=== PATIENT | female | born 1990 | race Two or more races ===

== ENCOUNTER 2019-06-11 15:53 | Emergency (ER) | payer SELFPAY ==
[~2019-06-11] VITALS: Ht 154.9 cm; Wt 95.9 kg
--- NOTE | 2019-06-11 16:27 | PHYS DOC ---
Past Medical History Past Medical History: No Pertinent History Past Surgical History: No Surgical History Alcohol Use: Occasionally Drug Use: Marijuana Adult General Chief Complaint Chief Complaint: BLOODY STOOL HPI HPI Patient is a 29 year old female with no significant medical history who presents to the ED today complaining of nausea, vomiting, bloody stools, symptoms for 5 weeks. Patient is also complaining of bloody stools that began 3 days ago. Denies any hematemesis. Describes abdominal pain as sharp and rates it at 5/10, denies any exacerbating or relieving factors to her symptoms. Review of Systems Review of Systems Constitutional: Denies fever or chills [] Eyes: Denies change in visual acuity, redness, or eye pain [] HENT: Denies nasal congestion or sore throat [] Respiratory: Denies cough or shortness of breath [] Cardiovascular: No additional information not addressed in HPI [] GI: Reports abdominal pain, nausea, vomiting, diarrhea with bloody stools : Denies dysuria or hematuria [] Musculoskeletal: Denies back pain or joint pain [] Integument: Denies rash or skin lesions [] Neurologic: Denies headache, focal weakness or sensory changes [] All other systems were reviewed and found to be within normal limits, except as documented in this note. Current Medications Current Medications Current Medications Medications (Trade) Dose Ordered Sig/[facility] Start Time Stop Time Status Last Admin Dose Admin Famotidine (Pepcid Vial) 20 mg 1X ONCE 06/11/19 16:30 06/11/19 16:31 DC 06/11/19 16:53 20 MG Fentanyl Citrate (Fentanyl 2ml Vial) 50 mcg 1X ONCE 06/11/19 16:30 06/11/19 16:31 DC Info (CONTRAST GIVEN -- Rx MONITORING) 1 each PRN DAILY PRN 06/11/19 17:15 06/13/19 17:14 Iohexol (Omnipaque 300 Mg/ml) 75 ml 1X ONCE 06/11/19 17:15 06/11/19 17:16 DC 06/11/19 17:18 75 ML Ondansetron HCl (Zofran) 4 mg 1X ONCE 06/11/19 16:30 06/11/19 16:31 DC 06/11/19 16:59 4 MG Sodium Chloride 1,000 ml @ 1,000 mls/hr 1X ONCE 06/11/19 16:30 06/11/19 17:29 DC 06/11/19 16:48 1,000 MLS/HR Allergies Allergies Allergies Coded Allergies Type Severity Reaction Last Updated Verified No Known Drug Allergies 06/11/19 No Physical Exam Physical Exam Constitutional: Well developed, well nourished, no acute distress, non-toxic appearance. [] HENT: Normocephalic, atraumatic, bilateral external ears normal, oropharynx moist, no oral exudates, nose normal. [] Eyes: PERRLA, EOMI, conjunctiva normal, no discharge. [] Neck: Normal range of motion, no tenderness, supple, no stridor. [] Cardiovascular:Heart rate regular rhythm, no murmur [] Lungs & Thorax: Bilateral breath sounds clear to auscultation [] Abdomen: Bowel sounds normal, soft, mild epigastric tenderness, no right upper quadrant or right lower quadrant tenderness, negative psoas sign, negative obturator sign, negative Rovsing sign no guarding no masses, no pulsatile masses. [] Skin: Warm, dry, no erythema, no rash. [] Back: No tenderness, no CVA tenderness. [] Extremities: No tenderness, no cyanosis, no clubbing, ROM intact, no edema. [] Neurologic: Alert and oriented X 3, normal motor function, normal sensory function, no focal deficits noted. [] Psychologic: Affect normal, judgement normal, mood normal. [] Current Patient Data Vital Signs Vital Signs Date Time Temp Pulse Resp B/P (MAP) Pulse Ox O2 Delivery O2 Flow Rate FiO2 06/11/19 17:26 64 16 140/66 (90) 98 Room Air 06/11/19 16:16 99.3 99.3 Lab Values Laboratory Tests Test 06/11/19 16:23 06/11/19 16:42 06/11/19 16:45 06/11/19 17:24 Urine Collection Type Void Urine Color Yellow Urine Clarity Clear Urine pH 6.0 Urine Specific [place] 1.025 Urine Protein Negative mg/dL (NEG-TRACE) Urine Glucose (UA) Negative mg/dL (NEG) Urine Ketones (Stick) Negative mg/dL (NEG) Urine Blood Negative (NEG) Urine Nitrite Negative (NEG) Urine Bilirubin Negative (NEG) Urine Urobilinogen Dipstick 0.2 mg/dL (0.2 mg/dL) Urine Leukocyte Esterase Negative (NEG) Urine RBC 0 /HPF (0-2) Urine WBC Occ /HPF (0-4) Urine Squamous Epithelial Cells Many /LPF Urine Bacteria Many /HPF (0-FEW) Urine Mucus Marked /LPF Urine Opiates Screen Neg (NEG) Urine Methadone Screen Neg (NEG) Urine Barbiturates Neg (NEG) Urine Phencyclidine Screen Neg (NEG) Urine Amphetamine/Methamphetamine Neg (NEG) Urine Benzodiazepines Screen Neg (NEG) Urine Cocaine Screen Neg (NEG) Urine Cannabinoids Screen Pos (NEG) Urine Ethyl Alcohol Neg (NEG) POC Urine HCG, Qualitative Hcg negative (Negative) White Blood Count 7.6 x10^3/uL (4.0-11.0) Red Blood Count 4.90 x10^6/uL (3.50-5.40) Hemoglobin 14.0 g/dL (12.0-15.5) Hematocrit 41.4 % (36.0-47.0) Mean Corpuscular Volume 85 fL (79-100) Mean Corpuscular Hemoglobin 29 pg (25-35) Mean Corpuscular Hemoglobin Concent 34 g/dL (31-37) Red Cell Distribution Width 13.1 % (11.5-14.5) Platelet Count 309 x10^3/uL (140-400) Neutrophils (%) (Auto) 56 % (31-73) Lymphocytes (%) (Auto) 31 % (24-48) Monocytes (%) (Auto) 10 % (0-9) H Eosinophils (%) (Auto) 3 % (0-3) Basophils (%) (Auto) 0 % (0-3) Neutrophils # (Auto) 4.3 x10^3/uL (1.8-7.7) Lymphocytes # (Auto) 2.4 x10^3/uL (1.0-4.8) Monocytes # (Auto) 0.7 x10^3/uL (0.0-1.1) Eosinophils # (Auto) 0.2 x10^3/uL (0.0-0.7) Basophils # (Auto) 0.0 x10^3/uL (0.0-0.2) Sodium Level 144 mmol/L (136-145) Potassium Level 3.9 mmol/L (3.5-5.1) Chloride Level 107 mmol/L (98-107) Carbon Dioxide Level 30 mmol/L (21-32) Anion Gap 7 (6-14) Blood Urea Nitrogen 14 mg/dL (7-20) Creatinine 0.8 mg/dL (0.6-1.0) Estimated GFR (Cockcroft-Gault) 85.4 BUN/Creatinine Ratio 18 (6-20) Glucose Level 98 mg/dL (70-99) Calcium Level 9.0 mg/dL (8.5-10.1) Total Bilirubin 0.5 mg/dL (0.2-1.0) Aspartate Amino Transferase (AST) 32 U/L (15-37) Alanine Aminotransferase (ALT) 46 U/L (14-59) Alkaline Phosphatase 82 U/L (46-116) Total Protein 7.8 g/dL (6.4-8.2) Albumin 3.8 g/dL (3.4-5.0) Albumin/Globulin Ratio 1.0 (1.0-1.7) Lipase 69 U/L (73-393) L Ethyl Alcohol Level < 10 mg/dL (0-10) Stool Occult Blood Negative (NEG) Laboratory Tests 06/11/19 16:45 Laboratory Tests 06/11/19 16:45 EKG EKG [] Radiology/Procedures Radiology/Procedures []PROCEDURE: CT ABD PELV W/ IV CONTRST ONLY PQRS Compliance Statement: One or more of the following individualized dose reduction techniques were utilized for this examination: 1. Automated exposure control 2. Adjustment of the mA and/or kV according to patient size 3. Use of iterative reconstruction technique CT ABD PELV W/ IV CONTRST ONLY Clinical Indication: Nausea, vomiting, abdominal pain, blood in stool x5 weeks. Comparison: None. Technique: Helical CT imaging of the abdomen and pelvis is performed after 75 cc of Omnipaque 300 IV contrast. Oral contrast not given. Findings: Lung bases are clear. Cardiac size normal. The liver, gallbladder, spleen, pancreas, adrenal glands, abdominal aorta, and kidneys are normal. Stomach is unremarkable. There is no dilated small bowel. There is no convincing colon wall thickening. The appendix is normal. There are 2 enlarged pericecal lymph nodes, largest measures 14 mm short axis. There are a few other subcentimeter pericecal lymph nodes. There is large right pelvic mass. The mass is solid and enhancing and measures approximately 10 cm AP by 11.2 cm transverse by 12.6 cm craniocaudal. Origin of the mass is not definitive but the appearance is identical to the mass extending from the uterine fundus. There is a large mass contiguous with the uterine fundus that measures 8 cm AP by 10.1 cm transverse by approximately 7 cm craniocaudal. There is a partially exophytic fibroid at the anterior uterine fundus measuring 2.6 cm. Left ovary appears to be seen on image 64. Right ovary probably present on image 54. Urinary bladder is not well distended, otherwise normal. No pelvic free fluid. No acute bone abnormality. IMPRESSION: 1. There are large bilateral pelvic masses protruding superiorly to near the level of the umbilicus. The mass on the left is contiguous with the uterine fundus and is likely a fibroid. The mass on the right may be an exophytic or pedunculated fibroid. Given the size of the masses, leiomyosarcoma cannot be excluded. 2. There are 2 mildly enlarged pericecal lymph nodes, indeterminate. Electronically signed by: Kasi Mcguire MD (06/11/2019 6:29 PM) [id number] DICTATED and SIGNED BY: KASI MCGUIRE MD DATE: 06/11/19 1829 Course & Med Decision Making Course & Med Decision Making Pertinent Labs and Imaging studies reviewed. (See chart for details) This is a 29-year-old female patient presenting to the ED today with complaints of epigastric abdominal pain, nausea, vomiting, diarrhea, symptoms began 5 weeks ago. Also complaining of bloody stools for 3 days. Negative urine hCG, CBC, CMP, UA-negative for any acute findings, negative Hemoccult. CT of the abdomen and pelvic was noted for large bilateral pelvic masses concerning for fibrous though he also, could not be excluded. Also noted for 2 mildly enlarged pericecal lymph nodes, indeterminate. Above results were discussed with patient. She was advised to follow up with an STRIP FEEDER for outpatient workup including pelvic ultrasound. Dragon Disclaimer Dragon Disclaimer This electronic medical record was generated, in whole or in part, using a voice recognition dictation system. Departure Departure Impression: Primary Impression: Bloody stools Additional Impression: Fibroids Disposition: HOME, SELF-CARE Condition: STABLE Referrals: NO PCP (PCP) GERALDINE JIMÉNEZ Jr, MD follow up in one week Patient Instructions: Fibroids, [id number] Additional Instructions: You were evaluated in the emergency room for abdominal pain with nausea, vomiting, diarrhea. Your labs are negative for any acute findings. Your ct- scan of the abdomen and pelvic was noted for large fibroids in your uterus. They could not rule out cancerous origin of this fibroids. We provided you an STRIP FEEDER, contact them tomorrow and follow-up. If you have your own STRIP FEEDER consider following up with them as soon as you can. Scripts No Active Prescriptions or Reported Meds Problem Qualifiers MALIK STEELE APRN Jun 11, 2019 16:27
[2019-06-11] MEDS ORDERED: FAMOTIDINE 20 MG/2 ML VIAL IVP ONE (16:30)
[2019-06-11] MEDS ORDERED: fentaNYL PF VIAL 100 MCG/2 ML VIAL IVP ONE (16:30)
[2019-06-11] MEDS ORDERED: IV NORMAL SALINE 1000ML BAG 1,000 ML IV ONE (16:30)
[2019-06-11] MEDS ORDERED: ONDANSETRON PF 4 MG/2 ML VIAL. IV ONE (16:30)
[2019-06-11 16:52] LABS: BILIRUBIN,URINE NEGATIVE (NEG); CLARITY,URINE CLEAR; COLOR,URINE YELLOW; NITRITE,URINE NEGATIVE (NEG); PROTEIN,URINE NEGATIVE (NEG-TRACE); UROBILINOGEN,URINE 0.2 mg/dL (0.2 mg/dL)
[2019-06-11 16:56] LABS: BASO % 0 % (0-3); EOS # 0.2 x10^3/uL (0.0-0.7); EOS % 3 % (0-3); HEMATOCRIT 41.4 % (36.0-47.0); LYMPH # 2.4 x10^3/uL (1.0-4.8); LYMPH % 31 % (24-48); MEAN CORPUSCULAR HEMOGLOBIN 29 pg (25-35); MEAN CORPUSCULAR HGB CONC 34 g/dL (31-37); MEAN CORPUSCULAR VOLUME 85 fL (79-100); MONO # 0.7 x10^3/uL (0.0-1.1); MONO % 10 % (0-9); NEUT # 4.3 x10^3/uL (1.8-7.7); NEUT % 56 % (31-73); PLATELET COUNT 309 x10^3/uL (140-400); RED CELL DISTRIBUTION WIDTH 13.1 % (11.5-14.5); WHITE BLOOD COUNT 7.6 x10^3/uL (4.0-11.0)
[2019-06-11 16:57] LABS: BARBITURATES NEG (NEG); BENZODIAZEPINES NEG (NEG); CANNABINOIDS POS (NEG); COCAINE NEG (NEG); METHADONE NEG (NEG); OPIATES NEG (NEG); PHENCYCLIDINE NEG (NEG)
[2019-06-11 16:59] LABS: AMPHETAMINE/METHAMPHETAMINE NEG (NEG)
[2019-06-11 17:07] LABS: CREATININE 0.8 mg/dL (0.6-1.0); GFR 85.4; POTASSIUM 3.9 mmol/L (3.5-5.1)
[2019-06-11 17:13] LABS: ALBUMIN 3.8 g/dL (3.4-5.0); TOTAL BILIRUBIN 0.5 mg/dL (0.2-1.0); TOTAL PROTEIN 7.8 g/dL (6.4-8.2)
[2019-06-11] MEDS ORDERED: IOHEXOL 300 MG/ML 100ML VIAL. IV ONE (17:15)
[2019-06-11] MEDS ORDERED: CONTRAST GIVEN. MC PRN (17:15)
[2019-06-11 17:16] LABS: BACTERIA,URINE MANY /HPF (0-FEW); RBC,URINE 0 /HPF (0-2); WBC,URINE OCC /HPF (0-4)
[2019-06-11 17:17] LABS: SQUAMOUS EPITHELIAL CELL,UR MANY /LPF
[2019-06-11 17:26] VITALS: BP 140/66
[2019-06-11 17:48] LABS: FECAL OB PT NEGATIVE (NEG)
--- NOTE | 2019-06-11 18:32 | RAD ---
PQRS Compliance Statement: One or more of the following individualized dose reduction techniques were utilized for this examination: 1. Automated exposure control 2. Adjustment of the mA and/or kV according to patient size 3. Use of iterative reconstruction technique CT ABD PELV W/ IV CONTRST ONLY Clinical Indication: Nausea, vomiting, abdominal pain, blood in stool x5 weeks. Comparison: None. Technique: Helical CT imaging of the abdomen and pelvis is performed after 75 cc of Omnipaque 300 IV contrast. Oral contrast not given. Findings: Lung bases are clear. Cardiac size normal. The liver, gallbladder, spleen, pancreas, adrenal glands, abdominal aorta, and kidneys are normal. Stomach is unremarkable. There is no dilated small bowel. There is no convincing colon wall thickening. The appendix is normal. There are 2 enlarged pericecal lymph nodes, largest measures 14 mm short axis. There are a few other subcentimeter pericecal lymph nodes. There is large right pelvic mass. The mass is solid and enhancing and measures approximately 10 cm AP by 11.2 cm transverse by 12.6 cm craniocaudal. Origin of the mass is not definitive but the appearance is identical to the mass extending from the uterine fundus. There is a large mass contiguous with the uterine fundus that measures 8 cm AP by 10.1 cm transverse by approximately 7 cm craniocaudal. There is a partially exophytic fibroid at the anterior uterine fundus measuring 2.6 cm. Left ovary appears to be seen on image 64. Right ovary probably present on image 54. Urinary bladder is not well distended, otherwise normal. No pelvic free fluid. No acute bone abnormality. IMPRESSION: 1. There are large bilateral pelvic masses protruding superiorly to near the level of the umbilicus. The mass on the left is contiguous with the uterine fundus and is likely a fibroid. The mass on the right may be an exophytic or pedunculated fibroid. Given the size of the masses, leiomyosarcoma cannot be excluded. 2. There are 2 mildly enlarged pericecal lymph nodes, indeterminate. Electronically signed by: Kasi Tipton MD (06/11/2019 6:29 PM) [id number]
== END 2019-06-11 18:50 | disposition home or self-care (01) ==
LOC: ER 15:53
DX: K92.1 Melena (principal); D25.9 Leiomyoma of uterus, unspecified; R11.2 Nausea with vomiting, unspecified
CPT/HCPCS: 36415; 74177; 80053; 80307; 81001; 81025; 82274; 83690; 85025; 96361; 96374; 96375; 99285; G0480; J2405; J3490; J7030; Q9967

== ENCOUNTER 2019-08-13 19:00 | Emergency (ER) | payer SELFPAY ==
[~2019-08-13] VITALS: Ht 154.9 cm; Wt 98.4 kg
[2019-08-13 19:30] LABS: BILIRUBIN,URINE NEGATIVE (NEG); CLARITY,URINE CLEAR; COLOR,URINE YELLOW; NITRITE,URINE NEGATIVE (NEG); PH,URINE 6.5; PROTEIN,URINE NEGATIVE (NEG-TRACE); UROBILINOGEN,URINE 0.2 mg/dL (0.2 mg/dL)
[2019-08-13 19:49] LABS: BACTERIA,URINE FEW /HPF (0-FEW); RBC,URINE 0 /HPF (0-2); SQUAMOUS EPITHELIAL CELL,UR MOD /LPF
[2019-08-13 19:52] LABS: U PREG PATIENT NEGATIVE (NEG)
[2019-08-13] MEDS ORDERED: ONDANSETRON PF 4 MG/2 ML VIAL. IV ONE (21:00)
[2019-08-13] MEDS ORDERED: IV NORMAL SALINE 1000ML BAG 1,000 ML IV ONE (21:00)
[2019-08-13 21:05] LABS: BASO % 0 % (0-3); EOS # 0.1 x10^3/uL (0.0-0.7); EOS % 1 % (0-3); HEMATOCRIT 42.3 % (36.0-47.0); HEMOGLOBIN 14.1 g/dL (12.0-15.5); LYMPH % 44 % (24-48); MEAN CORPUSCULAR HEMOGLOBIN 28 pg (25-35); MEAN CORPUSCULAR HGB CONC 33 g/dL (31-37); MEAN CORPUSCULAR VOLUME 84 fL (79-100); MONO # 0.6 x10^3/uL (0.0-1.1); MONO % 8 % (0-9); NEUT # 3.3 x10^3/uL (1.8-7.7); NEUT % 47 % (31-73); PLATELET COUNT 208 x10^3/uL (140-400); RED BLOOD COUNT 5.01 x10^6/uL (3.50-5.40); WHITE BLOOD COUNT 6.9 x10^3/uL (4.0-11.0)
[2019-08-13 21:12] LABS: CALCIUM 8.5 mg/dL (8.5-10.1); CREATININE 1.1 mg/dL (0.6-1.0); GFR 59.1; POTASSIUM 3.6 mmol/L (3.5-5.1)
[2019-08-13 21:18] LABS: ALBUMIN 3.6 g/dL (3.4-5.0); ALBUMIN/GLOBULIN RATIO 0.9 (1.0-1.7); TOTAL BILIRUBIN 0.4 mg/dL (0.2-1.0); TOTAL PROTEIN 7.6 g/dL (6.4-8.2)
[2019-08-13 21:19] LABS: INFLUENZA A PATIENT NEGATIVE (NEGATIVE); INFLUENZA B PATIENT NEGATIVE (NEGATIVE)
[2019-08-13] MEDS ORDERED: IOHEXOL 300 MG/ML 100ML VIAL. IV ONE (21:45)
[2019-08-13] MEDS ORDERED: CONTRAST GIVEN. MC PRN (21:45)
--- NOTE | 2019-08-13 22:35 | RAD ---
Examination: CT ABD PELV W/ IV CONTRST ONLY History: Vomiting for the past 4 days Comparison/Correlation: 06/11/2019 CT abdomen and pelvis with contrast Findings: Axial images of the abdomen and pelvis were obtained following IV contrast. Sagittal and coronal reformatted images were provided. Visualized lung bases are clear. Liver, spleen, pancreas, adrenal glands, and kidneys are normal. Gallbladder fossa is unremarkable. No bowel obstruction or extraluminal gas. Appendix is normal. No ascites or pelvic free fluid. Multiple large exophytic fibroid masses again seen to involve the uterus filling the pelvic cavity and extending to the mid abdominal level mild heterogeneous appearance of the fibroid masses. No significant change compared to the prior exam. Largest of the fibroids is seen on the right again measuring up to 11.2 cm in diameter. Urinary bladder is unremarkable. Bony structures are unremarkable. Impression: No significant change in large exophytic uterine fibroids. No acute, suspicious new process. PQRS Compliance Statement: One or more of the following individualized dose reduction techniques were utilized for this examination: 1. Automated exposure control 2. Adjustment of the mA and/or kV according to patient size 3. Use of iterative reconstruction technique Electronically signed by: Anjel Hunt MD (08/13/2019 10:32 PM) [facility]
[2019-08-13 22:39] VITALS: BP 147/83
[2019-08-13] MEDS ORDERED: ONDA4TAB12 PO (23:05)
--- NOTE | 2019-08-13 23:05 | PHYS DOC ---
Past Medical History Past Medical History: Other Additional Past Medical Histor: UTERINE FIBROIDS (MARIA GUADALUPE LANGSTON APRN) Past Surgical History: No Surgical History (MARIA GUADALUPE LANGSTON APRN) Alcohol Use: Occasionally Drug Use: Marijuana (MARIA GUADALUPE LANGSTON APRN) Attending Signature I have participated in the care of this patient and I have reviewed and agree with all pertinent clinical information above including history, exam, and recommendations. (BEAN CRABTREE MD) Adult General Chief Complaint Chief Complaint: NAUSEA/VOMITING/DIARRHA HPI HPI Patient is a 29 year old female who presents with vomiting after eating and drinking for the last 4 days. She states it does not matter what she is 8 or drink. She denies any pain or diarrhea. She states this happened back in April and the only thing they found was fibroids. She states she never followed up with a GI doctor. She states she just been taking Pepto-Bismol and Angelic-Esbon. (MARIA GUADALUPE LANGSTON APRN) Review of Systems Review of Systems GI: Denies abdominal pain. + nausea, +vomiting, denies bloody stools or diarrhea [] All other systems were reviewed and found to be within normal limits, except as documented in this note. (MARIA GUADALUPE LANGSTON APRN) Current Medications Current Medications Current Medications Medications (Trade) Dose Ordered Sig/[place] Start Time Stop Time Status Last Admin Dose Admin Info (CONTRAST GIVEN -- Rx MONITORING) 1 each PRN DAILY PRN 08/13/19 21:45 08/14/19 00:14 DC Iohexol (Omnipaque 300 Mg/ml) 75 ml 1X ONCE 08/13/19 21:45 08/13/19 21:46 DC 08/13/19 21:53 75 ML Ondansetron HCl (Zofran) 4 mg 1X ONCE 08/13/19 21:00 08/13/19 21:01 DC 08/13/19 21:07 4 MG Sodium Chloride 1,000 ml @ 1,000 mls/hr 1X ONCE 08/13/19 21:00 08/13/19 21:59 DC 08/13/19 21:07 1,000 MLS/HR (BEAN CRABTREE MD) Allergies Allergies Allergies Coded Allergies Type Severity Reaction Last Updated Verified No Known Drug Allergies 06/11/19 No (BEAN CRABTREE MD) Physical Exam Physical Exam Constitutional: Well developed, well nourished, no acute distress, non-toxic appearance. [] HENT: Normocephalic, atraumatic, bilateral external ears normal, oropharynx moist, no oral exudates, nose normal. [] Eyes: PERRLA, EOMI, conjunctiva normal, no discharge. [] Neck: Normal range of motion, no tenderness, supple, no stridor. [] Cardiovascular:Heart rate regular rhythm, no murmur [] Lungs & Thorax: Bilateral breath sounds clear to auscultation [] Abdomen: Bowel sounds normal, soft, no tenderness, no masses, no pulsatile masses. [] Skin: Warm, dry, no erythema, no rash. [] Back: No tenderness, no CVA tenderness. [] Extremities: No tenderness, no cyanosis, no clubbing, ROM intact, no edema. [] Neurologic: Alert and oriented X 3, normal motor function, normal sensory function, no focal deficits noted. [] Psychologic: Affect normal, judgement normal, mood normal. Normal Physical Exam [] (MARIA GUADALUPE LANGSTON APRN) Current Patient Data Vital Signs Vital Signs Date Time Temp Pulse Resp B/P (MAP) Pulse Ox O2 Delivery O2 Flow Rate FiO2 08/13/19 22:39 58 26 147/83 (104) 99 Room Air 08/13/19 19:33 97.6 97.6 (BEAN CRABTREE MD) Lab Values Laboratory Tests Test 08/13/19 19:09 08/13/19 19:30 08/13/19 20:55 Urine Collection Type Unknown Urine Color Yellow Urine Clarity Clear Urine pH 6.5 Urine Specific [place] 1.010 Urine Protein Negative mg/dL (NEG-TRACE) Urine Glucose (UA) Negative mg/dL (NEG) Urine Ketones (Stick) Negative mg/dL (NEG) Urine Blood Negative (NEG) Urine Nitrite Negative (NEG) Urine Bilirubin Negative (NEG) Urine Urobilinogen Dipstick 0.2 mg/dL (0.2 mg/dL) Urine Leukocyte Esterase Negative (NEG) Urine RBC 0 /HPF (0-2) Urine WBC 1-4 /HPF (0-4) Urine Squamous Epithelial Cells Mod /LPF Urine Bacteria Few /HPF (0-FEW) Urine Test Negative (NEG) White Blood Count 6.9 x10^3/uL (4.0-11.0) Red Blood Count 5.01 x10^6/uL (3.50-5.40) Hemoglobin 14.1 g/dL (12.0-15.5) Hematocrit 42.3 % (36.0-47.0) Mean Corpuscular Volume 84 fL (79-100) Mean Corpuscular Hemoglobin 28 pg (25-35) Mean Corpuscular Hemoglobin Concent 33 g/dL (31-37) Red Cell Distribution Width 13.0 % (11.5-14.5) Platelet Count 208 x10^3/uL (140-400) Neutrophils (%) (Auto) 47 % (31-73) Lymphocytes (%) (Auto) 44 % (24-48) Monocytes (%) (Auto) 8 % (0-9) Eosinophils (%) (Auto) 1 % (0-3) Basophils (%) (Auto) 0 % (0-3) Neutrophils # (Auto) 3.3 x10^3/uL (1.8-7.7) Lymphocytes # (Auto) 3.0 x10^3/uL (1.0-4.8) Monocytes # (Auto) 0.6 x10^3/uL (0.0-1.1) Eosinophils # (Auto) 0.1 x10^3/uL (0.0-0.7) Basophils # (Auto) 0.0 x10^3/uL (0.0-0.2) Sodium Level 145 mmol/L (136-145) Potassium Level 3.6 mmol/L (3.5-5.1) Chloride Level 106 mmol/L (98-107) Carbon Dioxide Level 29 mmol/L (21-32) Anion Gap 10 (6-14) Blood Urea Nitrogen 10 mg/dL (7-20) Creatinine 1.1 mg/dL (0.6-1.0) H Estimated GFR (Cockcroft-Gault) 59.1 BUN/Creatinine Ratio 9 (6-20) Glucose Level 96 mg/dL (70-99) Calcium Level 8.5 mg/dL (8.5-10.1) Total Bilirubin 0.4 mg/dL (0.2-1.0) Aspartate Amino Transferase (AST) 40 U/L (15-37) H Alanine Aminotransferase (ALT) 71 U/L (14-59) H Alkaline Phosphatase 75 U/L (46-116) Total Protein 7.6 g/dL (6.4-8.2) Albumin 3.6 g/dL (3.4-5.0) Albumin/Globulin Ratio 0.9 (1.0-1.7) L Lipase 66 U/L (73-393) L Influenza Type A Antigen Negative (NEGATIVE) Influenza Type B Antigen Negative (NEGATIVE) Laboratory Tests 08/13/19 19:30 Laboratory Tests 08/13/19 19:30 (BEAN CRABTREE MD) EKG EKG [] (MARIA GUADALUPE LANGSTON APRN) Radiology/Procedures Radiology/Procedures [] (MARIA GUADALUPE LANGSTON APRN) Impressions: [facility] [address] [place] [address] IMAGING REPORT Signed PATIENT: JASBIR CAZARES AACCOUNT: [id number] : 1990 LOCATION: ER AGE: 29 SEX: F EXAM STATUS: REG ER ORD. PHYSICIAN: MARIA GUADALUPE LANGSTON APRN REASON: vomiting X4 DAYS, OMNI 300, 60 ML IV PROCEDURE: CT ABD PELV W/ IV CONTRST ONLY Examination: CT ABD PELV W/ IV CONTRST ONLY History: Vomiting for the past 4 days Comparison/Correlation: 06/11/2019 CT abdomen and pelvis with contrast Findings: Axial images of the abdomen and pelvis were obtained following IV contrast. Sagittal and coronal reformatted images were provided. Visualized lung bases are clear. Liver, spleen, pancreas, adrenal glands, and kidneys are normal. Gallbladder fossa is unremarkable. No bowel obstruction or extraluminal gas. Appendix is normal. No ascites or pelvic free fluid. Multiple large exophytic fibroid masses again seen to involve the uterus filling the pelvic cavity and extending to the mid abdominal level mild heterogeneous appearance of the fibroid masses. No significant change compared to the prior exam. Largest of the fibroids is seen on the right again measuring up to 11.2 cm in diameter. Urinary bladder is unremarkable. Bony structures are unremarkable. Impression: No significant change in large exophytic uterine fibroids. No acute, suspicious new process. PQRS Compliance Statement: One or more of the following individualized dose reduction techniques were utilized for this examination: 1. Automated exposure control 2. Adjustment of the mA and/or kV according to patient size 3. Use of iterative reconstruction technique Electronically signed by: Anjel Asher MD (08/13/2019 10:32 PM) [facility] DICTATED and SIGNED BY: ANJEL ASHER MD DATE: 08/13/192231 (MARIA GUADALUPE LANGSTON APRN) Course & Med Decision Making Course & Med Decision Making Alert and oriented. Skin pink warm and dry. Vital signs within normal limits. Abdomen is soft and nontender. No extremity edema. Lungs are clear to auscultation all lobes. Afebrile. Speaks in full clear sentences. Ambulatory with steady gait. Patient is given fluids and Zofran in the emergency room. CT abdomen pelvis shows Impression: No significant change in large exophytic uterine fibroids. No acute, suspicious new process. Blood work is unremarkable. Patient is stable and in no distress. Patient's vital signs remained stable. She is by mouth challenge and kept water down. I will refer her to TREATMENT SPECIALIST and a gastrointestinal doctor. (MARIA GUADALUPE LANGSTON APRN) Dragon Disclaimer Dragon Disclaimer This electronic medical record was generated, in whole or in part, using a voice recognition dictation system. (MARIA GUADALUPE LANGSTON APRN) Departure Departure Impression: Primary Impression: Fibroids Additional Impression: Nausea & vomiting Disposition: 01 HOME, SELF-CARE Condition: STABLE Referrals: NO PCP (PCP) GEARLDINE JIMÉNEZ Jr, MD, SCOTT S MD Patient Instructions: Gastritis, Adult, Uterine Fibroid, [id number] Additional Instructions: Follow-up with GI doctor and a service supervisor. Drink plenty of fluids. Scripts Ondansetron (ONDANSETRON ODT) 4 Mg Tab.rapdis 1 TAB PO PRN Q6-8HRS, #16 TAB Prov: MARIA GUADALUPE LANGSTON APRN 08/13/19 Problem Qualifiers Additional Impression: Nausea & vomiting Vomiting type: unspecified Vomiting Intractability: non-intractable Qualified Codes: R11.2 - Nausea with vomiting, unspecified MARIA GUADALUPE LANGSTON APRN Aug 13, 2019 23:05 BEAN CRABTREE MD Aug 14, 2019 02:56
== END 2019-08-13 23:20 | disposition home or self-care (01) ==
LOC: ER 19:00
DX: D25.9 Leiomyoma of uterus, unspecified (principal); R11.2 Nausea with vomiting, unspecified
CPT/HCPCS: 36415; 74177; 80053; 81001; 81025; 83690; 85025; 87804; 96361; 96374; 99285; J2405; J7030; Q9967

== ENCOUNTER 2019-12-02 14:42 | Emergency (ER) | payer SELFPAY ==
[~2019-12-02] VITALS: Ht 154.9 cm; Wt 86.8 kg
[~2019-12-02 14:42] MED LIST: ONDA4TAB12 PO
[2019-12-02 15:06] LABS: BILIRUBIN,URINE NEGATIVE (NEG); CLARITY,URINE CLOUDY; COLOR,URINE YELLOW; NITRITE,URINE NEGATIVE (NEG); PROTEIN,URINE NEGATIVE (NEG-TRACE); UROBILINOGEN,URINE 0.2 mg/dL (0.2 mg/dL)
[2019-12-02 15:15] LABS: BACTERIA,URINE FEW /HPF (0-FEW); RBC,URINE 0 /HPF (0-2)
[2019-12-02 15:16] LABS: SQUAMOUS EPITHELIAL CELL,UR MOD /LPF
--- NOTE | 2019-12-02 16:07 | RAD ---
OB ultrasound less than 14 weeks HISTORY: Abdominal pain Sonographic examination of the was performed by transabdominal technique and multiple static images were obtained. There is a single live intrauterine . The heartbeat is confirmed at 180 beats for minute. There is a large exophytic fibroid in the right adnexa measuring The crown-rump length of 2.96 cm corresponds the 9 week 6 day gestational age. Visualization of structures is limited at this early gestational age. 13 x 9.3 x 10.4 cm. The LMP of 10/02/2019 corresponds with an 8 week 5 day gestational age and estimated date confinement of July 08, 2020. The estimated size by ultrasound corresponds with a date of confinement of July 01 2020. IMPRESSION: 1. Single live intrauterine measures 9 weeks 6 days gestational age. This is within one standard deviation of that by LMP. 2. Fibroid uterus. 3. A short-term follow-up ultrasound could be performed if clinically indicated otherwise a structural survey would be performed at 18-21 weeks gestational age. End impression Electronically signed by: Shakir Hylton III, MD (12/02/2019 4:05 PM) [id number]
--- NOTE | 2019-12-02 16:21 | PHYS DOC ---
Past Medical History Past Medical History: Other Additional Past Medical Histor: UTERINE FIBROIDS Past Surgical History: No Surgical History Smoking Status: Never Smoker Alcohol Use: Occasionally Drug Use: Marijuana General Adult EDM: Chief Complaint: ABDOMINAL PAIN IN HPI: HPI: Patient is a 29 year old G1, P0 female who presents with abdominal cramping that started this morning. She states it got worse when she got up and moved around. She has not had any abdominal pain during this until now. She has not seen WAD LUBRICATOR at this point in her . They have told her they will see her at 12 weeks gestation. She believes she is about 8 weeks gestation at this time. She denies any vaginal bleeding, dysuria, hematuria, nausea, vomiting, fever, shortness of breath, cough. She is not had any trauma. Review of Systems: Review of Systems: General: Denies fever, chills, sweats, fatigue Eyes: Denies drainage, blurred vision HENT: Denies rhinorrhea, sore throat Respiratory: Denies shortness of breath breath, wheezing Cardiac: Denies edema, palpitations, chest pain GI: Denies N/V reports abdominal pain MSK: Denies back pain, neck pain Skin: Denies rash, jaundice Neuro: Denies headache, dizziness Psychiatric: Denies SI/HI Heart Score: Risk Factors: Risk Factors: DM, Current or recent (<one month) smoker, HTN, HLP, family history of CAD, obesity. Risk Scores: Score 0 - 3: 2.5% MACE over next 6 weeks - Discharge Home Score 4 - 6: 20.3% MACE over next 6 weeks - Admit for Clinical Observation Score 7 - 10: 72.7% MACE over next 6 weeks - Early Invasive Strategies Allergies: Allergies: Allergies Coded Allergies Type Severity Reaction Last Updated Verified No Known Drug Allergies 06/11/19 No Physical Exam: PE: Constitutional: Well developed, well nourished, Cooperative, NAD, non-toxic appearing HEENT: Normocephalic, atraumatic, oropharynx moist, EOMI, PERRL, no drainage from eyes, normal conjunctiva Neck: Supple, normal range of motion, no stridor Cardiovascular: RRR, 2+ radial pulses bilaterally, no edema Respiratory: CTA bilaterally, no respiratory distress, no wheezing/crackles Abdomen: Soft, nontender, nondistended, no masses Skin: Warm, dry, intact Extremities: No obvious deformities Neurologic: Alert and Oriented x3, motor and sensory function grossly normal, no focal deficits Psychologic: Normal affect, normal judgment, normal mood. No SI/HI Current Patient Data: Labs: Laboratory Tests Test 12/02/19 14:52 12/02/19 14:59 12/02/19 15:02 Urine Collection Type Unknown Urine Color Yellow Urine Clarity Cloudy Urine pH 6.0 (<5.0-8.0) Urine Specific [place] 1.025 (1.000-1.030) Urine Protein Negative mg/dL (NEG-TRACE) Urine Glucose (UA) Negative mg/dL (NEG) Urine Ketones (Stick) Negative mg/dL (NEG) Urine Blood Negative (NEG) Urine Nitrite Negative (NEG) Urine Bilirubin Negative (NEG) Urine Urobilinogen Dipstick 0.2 mg/dL (0.2 mg/dL) Urine Leukocyte Esterase Small (NEG) Urine RBC 0 /HPF (0-2) Urine WBC 1-4 /HPF (0-4) Urine Squamous Epithelial Cells Mod /LPF Urine Bacteria Few /HPF (0-FEW) Urine Mucus Mod /LPF POC Urine HCG, Qualitative Hcg positive (Negative) Maternal Serum HCG Beta Subunit 23119 mIU/mL (0-5) H Vital Signs: Vital Signs Date Time Temp Pulse Resp B/P (MAP) Pulse Ox O2 Delivery O2 Flow Rate FiO2 12/02/19 15:54 80 102/64 (77) 100 Room Air 12/02/19 15:01 98.8 16 98.8 EKG: EKG: [] Radiology/Procedures: Radiology/Procedures: [] Course & Med Decision Making: Course & Med Decision Making Pertinent Labs and Imaging studies reviewed. (See chart for details) Patient is a 29-year-old female who presents the emergency room complaining of abdominal pain during . Patient has not had any trauma and is not having any vaginal bleeding. She does not need an Rh type at this time. Beta- hCG is just over 50,000. Ultrasound shows a single live intrauterine at 9 weeks gestation. UA is negative for infection or dehydration. Patient will follow-up with [facility] LUBRICATOR as scheduled. Patient's test results and vitals while in the ED were fully reviewed and discussed with the patient. Patient is stable and at this time does not need admission to the hospital. We have discussed strict return precautions and the importance of following up with the ir Primary Care Physician. Patient stated understanding and was given an opportunity to ask any questions. Teofilo Disclaimer: Teofilo Disclaimer: This electronic medical record was generated, in whole or in part, using a voice recognition dictation system. Departure Departure Impression: Primary Impression: Abdominal pain complicating Disposition: HOME, SELF-CARE Condition: STABLE Referrals: NO PCP (PCP) YOU KELLY MD Dec 02, 2019 16:21
[2019-12-02 16:24] VITALS: BP 104/55
== END 2019-12-02 16:29 | disposition home or self-care (01) ==
LOC: ER 14:42
DX: O26.891 Other specified pregnancy related conditions, first trimester (principal); R10.9 Unspecified abdominal pain; F12.90 Cannabis use, unspecified, uncomplicated; Z3A.12 12 weeks gestation of pregnancy
CPT/HCPCS: 36415; 76801; 81001; 81025; 84702; 87086; 99284

== ENCOUNTER 2020-01-21 16:57 | Emergency (ER) | payer SELFPAY ==
[~2020-01-21] VITALS: Ht 154.9 cm; Wt 87.7 kg
[2020-01-21 18:01] LABS: BILIRUBIN,URINE NEGATIVE (NEG); CLARITY,URINE CLEAR; COLOR,URINE YELLOW; NITRITE,URINE NEGATIVE (NEG); PH,URINE 5.5 (<5.0-8.0); PROTEIN,URINE NEGATIVE (NEG-TRACE)
[2020-01-21 18:04] LABS: BACTERIA,URINE MANY /HPF (0-FEW); RBC,URINE OCC /HPF (0-2); SQUAMOUS EPITHELIAL CELL,UR MANY /LPF
[2020-01-21 18:08] LABS: YEAST,URINE PRESENT /HPF
[2020-01-21 18:39] VITALS: BP 111/62
--- NOTE | 2020-01-21 18:45 | RAD ---
Exam: Ultrasound OB greater than 14 weeks Indication: Abdominal pain and Technique: Real-time grayscale and color Doppler images of the pelvis were obtained by the department globe tester. Comparisons: 12/02/2019 FINDINGS: Within the uterus there is a single live intrauterine gestation in breech presentation. heart rate measured at 148 bpm. measurements as follows: BPD: 3.6 cm corresponding to 17 weeks 0 days Head circumference: 13.1 cm corresponding to 16 weeks 5 days Abdominal circumference: 10.9 cm corresponding to 16 weeks 6 days Femur length: 2.4 cm corresponding to 17 weeks 1 day Estimated weight 176 g. Placenta is anterior and appears normal. Redemonstration of large exophytic fibroids. IMPRESSION: 1. Single live intrauterine gestation of 16 weeks 6 days gestation by prior ultrasound, with appropriate Interval growth. 2. Dedicated survey is recommended at 18-20 weeks gestation. Electronically signed by: Tracie Call MD (01/21/2020 6:42 PM) [id number]
[2020-01-21] MEDS ORDERED: CEPH-264 PO (18:52)
--- NOTE | 2020-01-21 18:52 | PHYS DOC ---
Past Medical History Past Medical History: Other Additional Past Medical Histor: UTERINE FIBROIDS (PERFCETO ISLAS APRN) Past Surgical History: Other Additional Past Surgical Histo: LT ARM FX REPAIR (PERFECTO ISLAS APRN) Smoking Status: Never Smoker Alcohol Use: Occasionally Drug Use: Marijuana (PERFECTO ISLAS APRN) General Adult EDM: Chief Complaint: ABDOMINAL PAIN IN HPI: HPI: Patient is a 29 [facility]ampy, bilateral, lower abdominal pain that began this morning. Patient states that she is and that her last menstrual cycle was on October 022019. Patient is 1, para 0. She denies any vaginal bleeding, dysuria, hematuria, low back pain, irregular vaginal discharge, vaginal odor, or increased urinary frequency. She denies any nausea, vomiting, diarrhea, fever, cough, shortness of breath, or body aches. She currently rates the pain a 6 out of 10 on pain scale she denies any alleviating factors. Patient states she has not been able to establish care due to the COVID crisis. (PERFECTO ISLAS APRN) Review of Systems: Review of Systems: Constitutional: Denies fever or chills. [] Eyes: Denies change in visual acuity. [] HENT: Denies nasal congestion or sore throat. [] Respiratory: Denies cough or shortness of breath. [] Cardiovascular: Denies chest pain or edema. [] GI: See HPI : Denies dysuria. [] Musculoskeletal: Denies back pain present present Integument: Denies rash. [] Neurologic: Denies headache, focal weakness or sensory changes. [] Psychiatric: Denies depression or anxiety. [] (PERFECTO ISLAS APRN) Heart Score: Risk Factors: Risk Factors: DM, Current or recent (<one month) smoker, HTN, HLP, family history of CAD, obesity. Risk Scores: Score 0 - 3: 2.5% MACE over next 6 weeks - Discharge Home Score 4 - 6: 20.3% MACE over next 6 weeks - Admit for Clinical Observation Score 7 - 10: 72.7% MACE over next 6 weeks - Early Invasive Strategies (PERFECTO ISLAS APRN) Allergies: Allergies: Allergies Coded Allergies Type Severity Reaction Last Updated Verified No Known Drug Allergies 06/11/19 No (PERFECTO ISLAS APRN) Physical Exam: PE: Constitutional: Well developed, well nourished, no acute distress, non-toxic appearance. [] HENT: Normocephalic, atraumatic, bilateral external ears normal, oropharynx moist, no oral exudates, nose normal. [] Eyes: PERRLA, EOMI, conjunctiva normal, no discharge. [] Neck: Normal range of motion, no stridor. [] Cardiovascular:Heart rate regular rhythm Lungs & Thorax: Bilateral breath sounds clear to auscultation, respirations even and unlabored, regular rate, no retractions [] Abdomen: Bowel sounds normal, bilateral round ligament tenderness to palpation, no rebound tenderness, no guarding, no masses, no pulsatile masses. [] Skin: Warm, dry, no erythema, no rash. [] Extremities: No cyanosis, ROM intact, no edema. [] Neurologic: Alert and oriented X 3, no focal deficits noted. [] Psychologic: Affect normal, judgement normal, mood normal. [] (PERFECTO ISLAS SMALL PIECE CUTTER) Current Patient Data: Labs: Laboratory Tests Test 01/21/20 17:11 01/21/20 17:35 01/21/20 17:45 POC Urine HCG, Qualitative Hcg positive (Negative) Maternal Serum HCG Beta Subunit 18622 mIU/mL (0-5) H Urine Collection Type Unknown Urine Color Yellow Urine Clarity Clear Urine pH 5.5 (<5.0-8.0) Urine Specific [place] 1.025 (1.000-1.030) Urine Protein Negative mg/dL (NEG-TRACE) Urine Glucose (UA) Negative mg/dL (NEG) Urine Ketones (Stick) Negative mg/dL (NEG) Urine Blood Negative (NEG) Urine Nitrite Negative (NEG) Urine Bilirubin Negative (NEG) Urine Urobilinogen Dipstick 1.0 mg/dL (0.2 mg/dL) Urine Leukocyte Esterase Large (NEG) Urine RBC Occ /HPF (0-2) Urine WBC 11-20 /HPF (0-4) Urine Squamous Epithelial Cells Many /LPF Urine Bacteria Many /HPF (0-FEW) Urine Mucus Marked /LPF Urine Yeast Present /HPF Vital Signs: Vital Signs Date Time Temp Pulse Resp B/P (MAP) Pulse Ox O2 Delivery O2 Flow Rate FiO2 01/21/20 17:10 98.5 86 18 129/66 (87) 100 Room Air 98.5 (PERFECTO ISLAS APRN) EKG: EKG: [] (PERFECTO ISLAS APRN) Radiology/Procedures: Radiology/Procedures: PROCEDURE: PREG MORE THAN OR EQ TO 14 WKS Exam: Ultrasound OB greater than 14 weeks Indication: Abdominal pain and Technique: Real-time grayscale and color Doppler images of the pelvis were obtained by the department pick out hand. Comparisons: 12/02/2019 FINDINGS: Within the uterus there is a single live intrauterine gestation in breech presentation. heart rate measured at 148 bpm. measurements as follows: BPD: 3.6 cm corresponding to 17 weeks 0 days Head circumference: 13.1 cm corresponding to 16 weeks 5 days Abdominal circumference: 10.9 cm corresponding to 16 weeks 6 days Femur length: 2.4 cm corresponding to 17 weeks 1 day Estimated weight 176 g. Placenta is anterior and appears normal. Redemonstration of large exophytic fibroids. IMPRESSION: 1. Single live intrauterine gestation of 16 weeks 6 days gestation by prior ultrasound, with appropriate Interval growth. 2. Dedicated survey is recommended at 18-20 weeks gestation. [] (PERFECTO ISLAS APRN) Course & Med Decision Making: Course & Med Decision Making Pertinent Labs and Imaging studies reviewed. (See chart for details) Patient is a 29-year-old female who presented to the emergency room with complaints of bilateral lower abdominal cramping and pain that began today. UA was concerning for 11-20 white blood cells and many bacteria, otherwise unremarkable. Patient's beta-hCG level was 13,197. An ultrasound revealed a single live intrauterine gestation of 16 weeks 6 days gestation with appropriate interval growth heart rate was measured at 148. Patient's vital signs were stable throughout the emergency visit. Prescription for Keflex 500 mg p.o. twice daily x7 days was sent to her pharmacy. The patient was encouraged to increase clear fluids, avoid bladder irritants, and establish care with Dr. Leroy for follow-up next week. Patient verbalized an understanding of home care, medications, follow-up, and return to ED instructions and was in agreement with the plan of care. [] (PERFECTO ISLAS APRN) Hinaon Disclaimer: Teofilo Disclaimer: This electronic medical record was generated, in whole or in part, using a voice recognition dictation system. (PERFECTO ISLAS APRN) Departure Departure Impression: Primary Impression: Round ligament pain Additional Impression: UTI in Qualified Codes: O23.42 - Unspecified infection of urinary tract in , second trimester Disposition: HOME, SELF-CARE Condition: STABLE Referrals: NO PCP (PCP) YANELY LEROY MD Patient Instructions: - Urinary Tract Infection, Round Ligament Pain Additional Instructions: Fill prescription(s) and use as directed. Avoid bladder irritants such as caffeine, carbonation, and spicy foods. Increase clear fluids. Follow up with Dr. Leroy next week, return to the ER if symptoms worsen. Scripts Cephalexin (KEFLEX) 500 Mg Capsule 1 CAP PO BID for 7 Days, #14 CAP 0 Refills Prov: PERFECTO ISLAS APRN 01/21/20 Justicifation of Admission Dx: Justifications for Admission: Justification of Admission Dx: No (PERFECTO ISLAS APRN) Attending Signature Attending Signature I have participated in the care of this patient and I have reviewed and agree with all pertinent clinical information above including history, exam, and recommendations. (SKY WORRELL DO) PERFECTO ISLAS APRN Jan 21, 2020 18:52 SKY WORRELL DO Jan 21, 2020 19:10
== END 2020-01-21 19:00 | disposition home or self-care (01) ==
LOC: ER 16:57
DX: O23.32 Infections of other parts of urinary tract in pregnancy, second trimester (principal); R10.2 Pelvic and perineal pain; F12.90 Cannabis use, unspecified, uncomplicated; Z98.890 Other specified postprocedural states; Z3A.16 16 weeks gestation of pregnancy
CPT/HCPCS: 36415; 76805; 81001; 81025; 84702; 87086; 99284

== ENCOUNTER 2020-02-11 21:18 | Emergency (ER) | payer SELFPAY ==
[~2020-02-11 21:18] MED LIST changes: +CEPH-264 PO
[2020-02-11 21:51] LABS: BILIRUBIN,URINE SMALL (NEG); CLARITY,URINE CLOUDY; COLOR,URINE AMBER; NITRITE,URINE NEGATIVE (NEG); PROTEIN,URINE NEGATIVE (NEG-TRACE)
[2020-02-11 21:56] LABS: AMORPHOUS SEDIMENT,UR PRESENT /HPF; BACTERIA,URINE MODERATE /HPF (0-FEW); SQUAMOUS EPITHELIAL CELL,UR MANY /LPF; WBC,URINE 20-40 /HPF (0-4)
[2020-02-11 21:57] LABS: RBC,URINE RARE /HPF (0-2)
--- NOTE | 2020-02-11 22:27 | PHYS DOC ---
Past Medical History Past Medical History: Other Additional Past Medical Histor: UTERINE FIBROIDS Past Surgical History: Other Additional Past Surgical Histo: LT ARM FX REPAIR Smoking Status: Never Smoker Alcohol Use: Occasionally Drug Use: Marijuana General Adult EDM: Chief Complaint: ABDOMINAL PAIN IN HPI: HPI: Patient is a 29 year old female accompanied by her mother who presents to the emergency department with complaints of lower abdominal pain. Patient was seen here on January 202019 and was diagnosed with a UTI during . Patient states that she never took the antibiotics that were prescribed for that infection. Patient is 1, para 0, she has not had a visit. She has a an appointment scheduled with Dr. Nieto on February 142019. Patient denies any irregular vaginal discharge, vaginal bleeding, vaginal odor, dysuria, hematuria, or back pain. She denies any fever. She currently reports her pain is a 10 out of 10 on the pain scale and describes it as a frequent cramp that happens every 10 seconds. She denies any alleviating or exacerbating factors. Review of Systems: Review of Systems: Complete review of systems is negative unless otherwise documented by the HPI. Heart Score: Risk Factors: Risk Factors: DM, Current or recent (<one month) smoker, HTN, HLP, family history of CAD, obesity. Risk Scores: Score 0 - 3: 2.5% MACE over next 6 weeks - Discharge Home Score 4 - 6: 20.3% MACE over next 6 weeks - Admit for Clinical Observation Score 7 - 10: 72.7% MACE over next 6 weeks - Early Invasive Strategies Allergies: Allergies: Allergies Coded Allergies Type Severity Reaction Last Updated Verified No Known Drug Allergies 06/11/19 No Physical Exam: PE: Constitutional: Well developed, well nourished, no acute distress, non-toxic appearance. [] HENT: Normocephalic, atraumatic, bilateral external ears normal, nose normal. [] Eyes: PERRLA, EOMI, conjunctiva normal, no discharge. [] Neck: Normal range of motion, no stridor. [] Cardiovascular:Heart rate regular rhythm Lungs & Thorax: Respirations even and unlabored, no retractions, no respiratory distress Abdomen: suprapubic pain Skin: Warm, dry, no erythema, no rash. [] Extremities: No cyanosis, ROM intact, no edema. [] Neurologic: Alert and oriented X 3, no focal deficits noted. [] Psychologic: Affect normal, judgement normal, mood normal. [] Current Patient Data: Labs: Laboratory Tests Test 02/11/20 21:30 Urine Collection Type Unknown Urine Color [place] Urine Clarity Cloudy Urine pH 6.0 (<5.0-8.0) Urine Specific [place] 1.025 (1.000-1.030) Urine Protein Negative mg/dL (NEG-TRACE) Urine Glucose (UA) Negative mg/dL (NEG) Urine Ketones (Stick) Trace mg/dL (NEG) Urine Blood Negative (NEG) Urine Nitrite Negative (NEG) Urine Bilirubin Small (NEG) Urine Urobilinogen Dipstick 1.0 mg/dL (0.2 mg/dL) Urine Leukocyte Esterase Large (NEG) Urine RBC Rare /HPF (0-2) Urine WBC 20-40 /HPF (0-4) Urine Squamous Epithelial Cells Many /LPF Urine Amorphous Sediment Present /HPF Urine Bacteria Moderate /HPF (0-FEW) Urine Mucus Marked /LPF EKG: EKG: [] Radiology/Procedures: Radiology/Procedures: [] Course & Med Decision Making: Course & Med Decision Making Pertinent Labs and Imaging studies reviewed. (See chart for details) [id number] spoke with Dr. Padron about the patient. I advised that the patient has been sent upstairs for monitoring. I informed Dr. Padron of the patient's previous diagnosis of a urinary tract infection on January 21, 2020. I advised him that UA had been sent by the ER the also was concerning for UTI and the fact that the patient never filled the antibiotic. We will admit this patient to Dr. Padron for urinary tract infection in and abdominal pain and . Will order lactated Ringer's at 175 mL/h and 1 g of IV Rocephin every 24 hours. [] Dragon Disclaimer: Dragon Disclaimer: This electronic medical record was generated, in whole or in part, using a voice recognition dictation system. Departure Departure Impression: Primary Impression: Abdominal pain complicating Additional Impression: UTI in Qualified Codes: O23.42 - Unspecified infection of urinary tract in , second trimester Disposition: ADMITTED INPATIENT Admitting Physician: MC BEASLEY) Condition: STABLE Referrals: NO PCP (PCP) Justicifation of Admission Dx: Justifications for Admission: Justification of Admission Dx: Yes Comments: UTI and with outpatient treatment failure PERFECTO ISLAS SEARCH ANALYST Feb 11, 2020 22:27
[2020-02-11] MEDS ORDERED: IV RINGERS,LACTATED 500ML 1,000 ML IV ONE (22:30)
[2020-02-11] MEDS ORDERED: cefTRIAXone IV Push 1 GM VIAL. IVP ONE (22:30)
== END 2020-02-11 21:50 | disposition other institution (70) ==
LOC: ER 21:18
DX: O23.42 Unspecified infection of urinary tract in pregnancy, second trimester (principal); R10.30 Lower abdominal pain, unspecified; F12.90 Cannabis use, unspecified, uncomplicated; Z98.890 Other specified postprocedural states; Z3A.00 Weeks of gestation of pregnancy not specified
CPT/HCPCS: 81001; 87086; 99283

== ENCOUNTER 2020-02-11 21:44 | Observation (INO) | payer SELFPAY ==
[2020-02-11] MEDS ORDERED: ONDANSETRON PF 4 MG/2 ML VIAL. IVP PRN ×2 (21:45→22:30)
[2020-02-11] MEDS ORDERED: MAG HYDROX/ALUMINUM HYD/SIMETH 30 ML ORAL.SUSP PO PRN (21:45)
[2020-02-11] MEDS ORDERED: ACETAMINOPHEN 325 MG TABLET. PO PRN (21:45)
[2020-02-11 22:04] LABS: BARBITURATES NEG (NEG); BENZODIAZEPINES NEG (NEG); CANNABINOIDS POS (NEG); COCAINE NEG (NEG); METHADONE NEG (NEG); OPIATES NEG (NEG); PHENCYCLIDINE NEG (NEG)
[2020-02-11 22:05] LABS: AMPHETAMINE/METHAMPHETAMINE NEG (NEG)
[2020-02-11] MEDS: IV RINGERS,LACTATED 1000ML 1,000 ML IV PRN (22:28)
[2020-02-11] MEDS ORDERED: cefTRIAXone IV Push 1 GM VIAL. IVP SCH (22:30)
[2020-02-11 22:36] LABS: BASO # 0.2 x10^3/uL (0.0-0.2); BASO % 1 % (0-3); EOS # 0.1 x10^3/uL (0.0-0.7); EOS % 1 % (0-3); HEMATOCRIT 32.8 % (36.0-47.0); LYMPH # 1.8 x10^3/uL (1.0-4.8); LYMPH % 10 % (24-48); MEAN CORPUSCULAR HEMOGLOBIN 26 pg (25-35); MEAN CORPUSCULAR HGB CONC 34 g/dL (31-37); MEAN CORPUSCULAR VOLUME 77 fL (79-100); MONO # 1.4 x10^3/uL (0.0-1.1); MONO % 8 % (0-9); NEUT # 14.1 x10^3/uL (1.8-7.7); NEUT % 81 % (31-73); PLATELET COUNT 418 x10^3/uL (140-400); RED BLOOD COUNT 4.24 x10^6/uL (3.50-5.40); RED CELL DISTRIBUTION WIDTH 14.3 % (11.5-14.5); WHITE BLOOD COUNT 17.5 x10^3/uL (4.0-11.0)
[2020-02-11 22:59] LABS: % BANDS 1 % (0-9); % LYMPHS 12 % (24-48); % MONOS 12 % (0-10); % SEGS 75 % (35-66); PLT ESTIMATE ADEQUATE (ADEQUATE)
[2020-02-12] MEDS ORDERED: ACETAMINOPHEN 500 MG TABLET PO ONE (00:15)
--- NOTE | 2020-02-12 00:28 | RAD ---
Examination: Obstetric ultrasound limited COMPARISON: 01/21/2020 HISTORY: Abdominal pain FINDINGS: Single living intrauterine identified with heart 153 bpm. movement, cardiac activity seen. Biparietal diameter measures 4.6 cm corresponding to 20 weeks and 1 day. Head circumference is 17.9 cm corresponding to 20 weeks and 3 days. Abdominal circumference measures 15.1 cm corresponding to 20 weeks and 3 days. Femur length measures 3.4 cm corresponding to 20 weeks and 6 days. Head circumference to abdominal circumference ratio 1.1 Estimated weight 361 g Large heterogeneous echogenicity identified abutting the uterine wall measuring 18.6 cm likely a large fibroid. Given LMP 09/23/2019. Clinical age 20 weeks and 1 day with estimated delivery by LMP 06/29/2020. Ultrasound age is 20 weeks and 3 days with estimated date delivery by ultrasound 06/27/2020. IMPRESSION: 1. Single living intrauterine with heart rate of 153 bpm. 2. Large heterogeneous fibroid abutting the anterior wall of the uterus. Electronically signed by: Diaz Kwong MD (02/12/2020 12:25 AM) [id number]
[2020-02-12] MEDS: IV RINGERS,LACTATED 1000ML 1,000 ML IV PRN (00:32)
== END 2020-02-12 01:32 | disposition home or self-care (01) ==
LOC: 3 SO LND 21:44
PROVIDERS: ADMIT Obstetrics & Gynecology; ATTEND Obstetrics & Gynecology
DX: O26.892 Other specified pregnancy related conditions, second trimester (principal); R10.9 Unspecified abdominal pain; O34.12 Maternal care for benign tumor of corpus uteri, second trimester; Z3A.20 20 weeks gestation of pregnancy; Z79.899 Other long term (current) drug therapy
CPT/HCPCS: 36415; 76815; 80307; 85007; 85025; G0378; G0379; J7120